=== PATIENT | male | born 1975 | race Caucasian/White ===

== ENCOUNTER 2022-07-25 19:56 | Emergency (ER) | payer BC ==
[2022-07-25] MEDS ORDERED: HYDROmorphone 1 MG/ML Syringe IM ONE (20:28)
[2022-07-25] MEDS ORDERED: Ketorolac 60 MG/2 ML SDV IM ONE (20:28)
== END 2022-07-25 20:53 | disposition home or self-care (01) ==
LOC: JD.ED 19:56
DX: K04.7 Periapical abscess without sinus (principal); K02.9 Dental caries, unspecified; Z72.0 Tobacco use
CPT/HCPCS: 96372; 99282; J1170; J1885